=== PATIENT | female | born 1995 | race Caucasian/White ===

== ENCOUNTER 2019-10-17 19:05 | Emergency (ER) | payer MEDICAID ==
[2019-10-17] MEDS ORDERED: BABY ASPIRIN 81 MG CHEW PO ONE (19:14)
[2019-10-17] MEDS ORDERED: Nitrostat 0.4 MG (ED) SL ONE (19:14)
[2019-10-17] MEDS ORDERED: Sodium Chloride 0.9% 1000 ML 1,000 ML IV STA (19:14)
--- NOTE | 2019-10-17 19:14 | ERPHSYRPT ---
- History of Present Illness Time Seen by Provider: 10/17/19 19:10 Historian: patient, EMS Exam Limitations: no limitations Physician History: pt did cocaine several hours ago near noon and developed CP like her previous anxiety attacks but more severe; she denies other drugs at this time; Timing/Duration: today Activities at Onset: other (cocaine hours ago) Quality: fullness, pressure, tightness Location: substernal Chest Pain Radiation: no radiation Severity of Pain-Max: moderate Severity of Pain-Current: moderate Modifying Factors: Improves With: nothing Associated Symptoms: shortness of breath Prior Chest Pain/Cardiac Workup: non-cardiac Nitro Today/Relief: 0.4 mg x 1, provided by ED Aspirin Treatment Today: 81 mg x 4, provided by ED Allergies/Adverse Reactions: acetaminophen [From Percocet] Allergy (Mild, Verified 10/17/19 19:28) Hives oxycodone [From Percocet] Allergy (Mild, Verified 10/17/19 19:28) Hives Home Medications: Albuterol 8 gm Mdi Hfa [Ventolin Hfa MDI] 8 gm IH Q4H PRN PRN 10/17/19 [ History] - Review of Systems Constitutional: No Fever, No Chills Eyes: No Symptoms Ears, Nose, & Throat: No Symptoms Respiratory: Dyspnea, No Cough Cardiac: Chest Pain, No Edema, No Syncope Abdominal/Gastrointestinal: No Abdominal Pain, No Nausea, No Vomiting, No Diarrhea Genitourinary Symptoms: No Dysuria Musculoskeletal: No Back Pain, No Neck Pain Skin: No Rash Neurological: No Dizziness, No Focal Weakness, No Sensory Changes Psychological: No Symptoms Endocrine: No Symptoms Hematologic/Lymphatic: No Symptoms Immunological/Allergic: No Symptoms All Other Systems: Reviewed and Negative - Past Medical History Pertinent Past Medical History: No - Nursing Vital Signs Nursing Vital Signs: Initial Vital Signs Temperature 98.3 F 10/17/19 19:06 Pulse Rate 95 H 10/17/19 19:06 Respiratory Rate 18 10/17/19 19:06 Blood Pressure 130/88 10/17/19 19:06 O2 Sat by Pulse Oximetry 100 10/17/19 19:06 Pain Scale Pain Intensity 0 - Physical Exam General Appearance: no apparent distress, alert Eye Exam: PERRL/EOMI, eyes nml inspection Ears, Nose, Throat Exam: normal ENT inspection, moist mucous membranes Neck Exam: normal inspection, non-tender, supple, full range of motion Respiratory Exam: normal breath sounds, lungs clear, No respiratory distress Cardiovascular Exam: regular rate/rhythm, normal heart sounds Gastrointestinal/Abdomen Exam: soft, No tenderness, No mass Pelvic Exam: deferred Rectal Exam: deferred Back Exam: normal inspection, No CVA tenderness, No vertebral tenderness Extremity Exam: normal inspection, normal range of motion Neurologic Exam: alert, oriented x 3, cooperative, normal mood/affect, sensation nml, No motor deficits Skin Exam: normal color, warm, dry - Course Nursing assessment & vital signs reviewed: Yes EKG Interpreted by Me: Sinus Rhythm, Non-specific ST Changes - Radiology Exams Chest X-ray Interpretation: Teleradiologist Report, Infiltrates Ordered Tests: Active Orders 24 hr Category Date Time Status Assistant Restaurant General Manager STAT Care 10/17/19 19:15 Active Clean Catch Urine Specimen STAT Care 10/17/19 19:14 Active EKG-ER Only STAT Care 10/17/19 19:14 Active IV Insertion STAT Care 10/17/19 19:14 Active Isolation, Initiate & Maintain Q12H Care 10/17/19 19:21 Active Pulse Oximetry (ED) STAT Care 10/17/19 19:14 Active CHEST 1 VIEW (PORTABLE) Stat Exams 10/17/19 19:28 Completed ACETAMINOPHEN Stat Lab 10/17/19 22:10 Completed CBC W DIFF Stat Lab 10/17/19 19:45 Completed CK-Creatinine Phosphokinase Stat Lab 10/17/19 19:45 Completed CMP Stat Lab 10/17/19 19:45 Completed D-DIMER QUANTITATIVE Stat Lab 10/17/19 19:45 Completed ETHYL ALCOHOL Stat Lab 10/17/19 19:45 Completed HCG QUALITATIVE,SERUM Stat Lab 10/17/19 19:45 Completed LIPASE Stat Lab 10/17/19 19:45 Completed Lactic Acid Stat Lab 10/17/19 19:46 Completed NT PRO BNP Stat Lab 10/17/19 19:45 Completed SALICYLATE Stat Lab 10/17/19 22:10 Completed TROPONIN Q3H Lab 10/17/19 19:45 Completed TROPONIN Q3H Lab 10/17/19 22:15 Completed TROPONIN Q3H Lab 10/18/19 01:15 Ordered TROPONIN Q3H Lab 10/18/19 04:15 Ordered TROPONIN Q3H Lab 10/18/19 07:15 Ordered Urine Triage Profile Stat Lab 10/17/19 19:45 Completed Medication Summary Discontinued Medications Generic Name Dose Route Start Last Admin Trade Name Benjy PRN Reason Stop Dose Admin Aspirin 324 mg 10/17/19 19:14 10/17/19 19:25 Baby Aspirin 81 Mg Chew PO 10/17/19 19:15 Not Given STAT ONE Sodium Chloride 1,000 mls @ 999 mls/hr 10/17/19 19:14 10/17/19 20:28 Sodium Chloride 0.9% 1000 Ml IV 10/17/19 20:14 Infused .Q1H1M STA Infusion Sodium Chloride Confirm 10/17/19 19:25 Sodium Chloride 0.9% 1000 Ml Administered 10/17/19 19:26 Dose 1,000 mls @ ud .ROUTE .STK-MED ONE Lorazepam 1 mg 10/17/19 21:46 10/17/19 22:39 Ativan 1 Mg PO 10/17/19 21:47 1 mg STAT ONE Administration Lorazepam Confirm 10/17/19 22:35 Ativan 1 Mg Administered 10/17/19 22:36 Dose 1 mg .ROUTE .STK-MED ONE Nitroglycerin 0.4 mg 10/17/19 19:14 Nitrostat 0.4 Mg (Ed) SL 10/17/19 19:15 STAT ONE Lab/Rad Data: Laboratory Result Diagrams 10/17/19 19:45 10/17/19 19:45 Laboratory Results 10/17/19 10/17/19 10/17/19 Range/Units 22:15 22:10 22:10 WBC (4.0-10.5) K/mm3 RBC (4.1-5.4) M/mm3 Hgb (12.0-16.0) gm/dl Hct (35-47) % MCV (78-100) fl MCH (26-32) pg MCHC (32-36) g/dl RDW (11.5-14.0) % Plt Count (150-450) K/mm3 MPV (7.5-11.0) fl Gran % (36.0-66.0) % Eos # (Auto) (0-0.5) Absolute Lymphs (auto) (1.0-4.6) Absolute Monos (auto) (0.0-1.3) Lymphocytes % (24.0-44.0) % Monocytes % (0.0-12.0) % Eosinophils % (0.00-5.0) % Basophils % (0.0-0.4) % Absolute Granulocytes (1.4-6.9) Basophils # (0-0.4) D-Dimer (215-500) ng/mL Sodium (137-145) mmol/L Potassium (3.5-5.1) mmol/L Chloride (98-107) mmol/L Carbon Dioxide (22-30) mmol/L Anion Gap (5-15) MEQ/L BUN (7-17) mg/dL Creatinine (0.52-1.04) mg/dL Estimated GFR ML/MIN Glucose (74-106) mg/dL Lactic Acid (0.4-2.0) Calcium (8.4-10.2) mg/dL Total Bilirubin (0.2-1.3) mg/dL AST (14-36) U/L ALT (0-35) U/L Alkaline Phosphatase (38-126) U/L Creatine Kinase (30-135) U/L Troponin I < 0.012 (0.000-0.034) ng/mL NT-Pro-B Natriuret Pep (0-450) pg/mL Serum Total Protein (6.3-8.2) g/dL Albumin (3.5-5.0) g/dL Lipase (23-300) U/L Serum , Qual (Negative) Salicylates 1.0 L (2-20) mg/dL Urine Opiates Level (NEGATIVE) Ur Methadone (NEGATIVE) Acetaminophen < 10 L (10-30) ug/ml Urine Barbiturates (NEGATIVE) Ur Phencyclidine (PCP) (NEGATIVE) Urine Amphetamine (NEGATIVE) U Benzodiazepine Level (NEGATIVE) Urine Cocaine (NEGATIVE) Urine Marijuana (THC) (NEGATIVE) Ethyl Alcohol (0-10) mg/dL 10/17/19 10/17/19 10/17/19 Range/Units 19:46 19:45 19:45 WBC (4.0-10.5) K/mm3 RBC (4.1-5.4) M/mm3 Hgb (12.0-16.0) gm/dl Hct (35-47) % MCV (78-100) fl MCH (26-32) pg MCHC (32-36) g/dl RDW (11.5-14.0) % Plt Count (150-450) K/mm3 MPV (7.5-11.0) fl Gran % (36.0-66.0) % Eos # (Auto) (0-0.5) Absolute Lymphs (auto) (1.0-4.6) Absolute Monos (auto) (0.0-1.3) Lymphocytes % (24.0-44.0) % Monocytes % (0.0-12.0) % Eosinophils % (0.00-5.0) % Basophils % (0.0-0.4) % Absolute Granulocytes (1.4-6.9) Basophils # (0-0.4) D-Dimer (215-500) ng/mL Sodium (137-145) mmol/L Potassium (3.5-5.1) mmol/L Chloride (98-107) mmol/L Carbon Dioxide (22-30) mmol/L Anion Gap (5-15) MEQ/L BUN (7-17) mg/dL Creatinine (0.52-1.04) mg/dL Estimated GFR ML/MIN Glucose (74-106) mg/dL Lactic Acid 1.4 (0.4-2.0) Calcium (8.4-10.2) mg/dL Total Bilirubin (0.2-1.3) mg/dL AST (14-36) U/L ALT (0-35) U/L Alkaline Phosphatase (38-126) U/L Creatine Kinase (30-135) U/L Troponin I (0.000-0.034) ng/mL NT-Pro-B Natriuret Pep (0-450) pg/mL Serum Total Protein (6.3-8.2) g/dL Albumin (3.5-5.0) g/dL Lipase (23-300) U/L Serum , Qual NEGATIVE (Negative) Salicylates (2-20) mg/dL Urine Opiates Level NEGATIVE (NEGATIVE) Ur Methadone NEGATIVE (NEGATIVE) Acetaminophen (10-30) ug/ml Urine Barbiturates NEGATIVE (NEGATIVE) Ur Phencyclidine (PCP) NEGATIVE (NEGATIVE) Urine Amphetamine NEGATIVE (NEGATIVE) U Benzodiazepine Level NEGATIVE (NEGATIVE) Urine Cocaine POSITIVE (NEGATIVE) Urine Marijuana (THC) NEGATIVE (NEGATIVE) Ethyl Alcohol (0-10) mg/dL 10/17/19 10/17/19 10/17/19 Range/Units 19:45 19:45 19:45 WBC (4.0-10.5) K/mm3 RBC (4.1-5.4) M/mm3 Hgb (12.0-16.0) gm/dl Hct (35-47) % MCV (78-100) fl MCH (26-32) pg MCHC (32-36) g/dl RDW (11.5-14.0) % Plt Count (150-450) K/mm3 MPV (7.5-11.0) fl Gran % (36.0-66.0) % Eos # (Auto) (0-0.5) Absolute Lymphs (auto) (1.0-4.6) Absolute Monos (auto) (0.0-1.3) Lymphocytes % (24.0-44.0) % Monocytes % (0.0-12.0) % Eosinophils % (0.00-5.0) % Basophils % (0.0-0.4) % Absolute Granulocytes (1.4-6.9) Basophils # (0-0.4) D-Dimer 323 (215-500) ng/mL Sodium 139 (137-145) mmol/L Potassium 3.6 (3.5-5.1) mmol/L Chloride 107 (98-107) mmol/L Carbon Dioxide 24 (22-30) mmol/L Anion Gap 11.6 (5-15) MEQ/L BUN 13 (7-17) mg/dL Creatinine 0.78 (0.52-1.04) mg/dL Estimated GFR > 60.0 ML/MIN Glucose 105 (74-106) mg/dL Lactic Acid (0.4-2.0) Calcium 8.7 (8.4-10.2) mg/dL Total Bilirubin 0.70 (0.2-1.3) mg/dL AST 26 (14-36) U/L ALT 17 (0-35) U/L Alkaline Phosphatase 70 (38-126) U/L Creatine Kinase 186 H (30-135) U/L Troponin I < 0.012 (0.000-0.034) ng/mL NT-Pro-B Natriuret Pep 72.2 (0-450) pg/mL Serum Total Protein 8.1 (6.3-8.2) g/dL Albumin 4.6 (3.5-5.0) g/dL Lipase 46 (23-300) U/L Serum , Qual (Negative) Salicylates (2-20) mg/dL Urine Opiates Level (NEGATIVE) Ur Methadone (NEGATIVE) Acetaminophen (10-30) ug/ml Urine Barbiturates (NEGATIVE) Ur Phencyclidine (PCP) (NEGATIVE) Urine Amphetamine (NEGATIVE) U Benzodiazepine Level (NEGATIVE) Urine Cocaine (NEGATIVE) Urine Marijuana (THC) (NEGATIVE) Ethyl Alcohol < 10 (0-10) mg/dL 10/17/19 Range/Units 19:45 WBC 9.0 (4.0-10.5) K/mm3 RBC 4.28 (4.1-5.4) M/mm3 Hgb 14.2 (12.0-16.0) gm/dl Hct 42.1 (35-47) % MCV 98.4 (78-100) fl MCH 33.2 H (26-32) pg MCHC 33.7 (32-36) g/dl RDW 12.4 (11.5-14.0) % Plt Count 287 (150-450) K/mm3 MPV 9.4 (7.5-11.0) fl Gran % 78.8 H (36.0-66.0) % Eos # (Auto) 0.06 (0-0.5) Absolute Lymphs (auto) 1.18 (1.0-4.6) Absolute Monos (auto) 0.63 (0.0-1.3) Lymphocytes % 13.1 L (24.0-44.0) % Monocytes % 7.0 (0.0-12.0) % Eosinophils % 0.7 (0.00-5.0) % Basophils % 0.4 (0.0-0.4) % Absolute Granulocytes 7.07 H (1.4-6.9) Basophils # 0.04 (0-0.4) D-Dimer (215-500) ng/mL Sodium (137-145) mmol/L Potassium (3.5-5.1) mmol/L Chloride (98-107) mmol/L Carbon Dioxide (22-30) mmol/L Anion Gap (5-15) MEQ/L BUN (7-17) mg/dL Creatinine (0.52-1.04) mg/dL Estimated GFR ML/MIN Glucose (74-106) mg/dL Lactic Acid (0.4-2.0) Calcium (8.4-10.2) mg/dL Total Bilirubin (0.2-1.3) mg/dL AST (14-36) U/L ALT (0-35) U/L Alkaline Phosphatase (38-126) U/L Creatine Kinase (30-135) U/L Troponin I (0.000-0.034) ng/mL NT-Pro-B Natriuret Pep (0-450) pg/mL Serum Total Protein (6.3-8.2) g/dL Albumin (3.5-5.0) g/dL Lipase (23-300) U/L Serum , Qual (Negative) Salicylates (2-20) mg/dL Urine Opiates Level (NEGATIVE) Ur Methadone (NEGATIVE) Acetaminophen (10-30) ug/ml Urine Barbiturates (NEGATIVE) Ur Phencyclidine (PCP) (NEGATIVE) Urine Amphetamine (NEGATIVE) U Benzodiazepine Level (NEGATIVE) Urine Cocaine (NEGATIVE) Urine Marijuana (THC) (NEGATIVE) Ethyl Alcohol (0-10) mg/dL - Progress Progress: improved, re-examined Air Movement: good Progress Note: 10/17/19 23:04 pt CP was resolved prior to chance to give NTG in ER and never returned. discussed with pt that still a CV event could occur although obs of 9 hours or more found very low risk if not events by then after cocaine exposure. SHe is advised to stop usage, and f/u PCP for further beatty; she declines furhter testing in ER or admision at this time asn has the capacity to make that choice now being clinically sober with noraml mental status. she is advised to see PCP to w/u LFTs. and f/u infiltarate. 10/17/19 23:15 pt also has heart score for3 or less with no hx CAD in family no other risk factors and had neg tro[p Blood Culture(s) Obtained: No Antibiotics given: No Counseled pt/family regarding: drug and/or alcohol abuse, lab results, diagnosis , need for follow-up, rad results - Departure Departure Disposition: Home Clinical Impression: chest pain/anxiety attack/ hx cocaine , LFT elevation, Lung infiltrate Condition: Good Critical Care Time: No Instructions: Chest Pain (DC), Cocaine Use Disorder Additional Instructions: see your drTom to recheck the liver tests and also some mild area of congestion in the lung which may also occur with smoke irritation; return meantime if further chest pain, anxiety, short of breath , fever or other concerns.
[2019-10-17] MEDS ORDERED: Sodium Chloride 0.9% 1000 ML 1,000 ML ONE (19:25)
--- NOTE | 2019-10-17 19:51 | XRAY ---
Indication: Chest pain following anxiety attack. Comparison: None Portable chest demonstrates hazy right infrahilar groundglass airspace opacity. Remaining heart, lungs, and bony thorax normal.
[2019-10-17 19:52] LABS: Absolute Neutrophil Ct (ANC) 7.07 (1.4-6.9); BASOPHIL % 0.4 % (0.0-0.4); Basophil (Absolute #) 0.04 (0-0.4); Eosinophil % 0.7 % (0.00-5.0); Eosinophil (Absolute #) 0.06 (0-0.5); Hematocrit 42.1 % (35-47); Hemoglobin 14.2 gm/dl (12.0-16.0); Lymphocyte (Absolute #) 1.18 (1.0-4.6); Lymphocytes % 13.1 % (24.0-44.0); Mean Cell Volume 98.4 fl (78-100); Mean Corpuscular Hemoglobin 33.2 pg (26-32); Mean Corpuscular Hgb Concent. 33.7 g/dl (32-36); Mean Platelet Volume 9.4 fl (7.5-11.0); Monocyte (Absolute #) 0.63 (0.0-1.3); Neutrophil % 78.8 % (36.0-66.0); Platelet Count 287 K/mm3 (150-450); Red Blood Count 4.28 M/mm3 (4.1-5.4); Red Cell Distribution Width 12.4 % (11.5-14.0)
[2019-10-17 20:09] LABS: Amphetamine,Urine NEGATIVE (NEGATIVE); Barbiturate,Urine NEGATIVE (NEGATIVE); Benzodiazepine,Urine NEGATIVE (NEGATIVE); Cocaine,Urine POSITIVE (NEGATIVE); Methadone,Urine NEGATIVE (NEGATIVE); Opiate,Urine NEGATIVE (NEGATIVE); PCP,Urine NEGATIVE (NEGATIVE); THC,Urine NEGATIVE (NEGATIVE)
[2019-10-17 20:16] LABS: ALBUMIN 4.6 g/dL (3.5-5.0); ALKALINE PHOSPHATASE 70 U/L (38-126); ANION GAP 11.6 MEQ/L (5-15); BLOOD UREA NITROGEN 13 mg/dL (7-17); CHLORIDE 107 mmol/L (98-107); CK-Creatinine Phosphokinase 186 U/L (30-135); Calcium 8.7 mg/dL (8.4-10.2); Carbon Dioxide 24 mmol/L (22-30); Creatinine 1 0.78 mg/dL (0.52-1.04); ETHYL ALCOHOL < 10 mg/dL (0-10); Glucose 105 mg/dL (74-106); LIPASE 46 U/L (23-300); NT PRO BNP 72.2 pg/mL (0-450); Potassium 3.6 mmol/L (3.5-5.1); SGOT/AST 26 U/L (14-36); SGPT/ALT 17 U/L (0-35); SODIUM 139 mmol/L (137-145); Total Protein 8.1 g/dL (6.3-8.2)
[2019-10-17 21:30] VITALS: O2SAT 99
[2019-10-17] MEDS ORDERED: Ativan 1 MG PO ONE (21:46)
[2019-10-17] MEDS ORDERED: Ativan 1 MG ONE (22:35)
[2019-10-17 23:20] VITALS: BP 132/84; PULSE 88
== END 2019-10-17 23:28 | disposition home or self-care (01) ==
LOC: ED 19:05
DX: R07.89 Other chest pain (principal); F41.9 Anxiety disorder, unspecified; F14.21 Cocaine dependence, in remission; F15.90 Other stimulant use, unspecified, uncomplicated; T40.5X5A Adverse effect of cocaine, initial encounter; R94.5 Abnormal results of liver function studies; R91.8 Other nonspecific abnormal finding of lung field
CPT/HCPCS: 36000; 36415; 71045; 80053; 80307; 81025; 82550; 83605; 83690; 83880; 84484; 85025; 85379; 93005; 93041; 94760; 96360; 99284; G0481; A9270-GY; G0480